=== PATIENT | female | born 2000 | race Caucasian/White ===

== ENCOUNTER 2023-01-28 12:02 | Inpatient (IN) | payer OTHER ==
[~2023-01-28] VITALS: Ht 157.5 cm; Wt 93.0 kg
[2023-01-28] VITALS (28 sets, daily range): BP systolic 100–136; BP diastolic 54–87
[2023-01-28] MEDS ORDERED: CALC500C16 PO (12:27)
[2023-01-28] MEDS ORDERED: PREN200C PO (12:27)
[2023-01-28] MEDS ORDERED: VITA100T59 PO (12:27)
[2023-01-28] MEDS ORDERED: LR 1,000 ML IV SCH (13:20)
[2023-01-28] MEDS ORDERED: METHYLERGONOVINE MALEATE 0.2MG/ML 1ML VIAL IM PRN (13:20)
[2023-01-28] MEDS ORDERED: CARBOPROST TROMETHAMINE 250 MCG/ML AMP IM PRN (13:20)
[2023-01-28] MEDS ORDERED: TRANEXAMIC ACID INJection 1,000 MG in NS 100 ML IV PRN (13:20)
[2023-01-28] MEDS ORDERED: OXYTOCIN DRIP 30 UNITS in IV 1 EA IV PRN ×4 (13:20)
[2023-01-28] MEDS ORDERED: HOME MED LIST COMPLETE! XX SCH (13:25)
[2023-01-28 14:08] LABS: HEMATOCRIT 29.4 % (36.0-47.0); HEMOGLOBIN 9.7 g/dl (12.0-15.5); MEAN CORPUSCULAR HEMOGLOBIN 29.3 pg (27.0-33.0); MEAN CORPUSCULAR VOLUME 88.8 fl (80.0-96.0); PLATELET COUNT, AUTOMATED 189 10^3/uL (150-450); RED BLOOD COUNT 3.31 10^6/uL (4.00-5.40); WHITE BLOOD COUNT 7.5 10^3/uL (4.0-10.0)
[2023-01-28] MEDS ORDERED: EPIDURAL/PCA KEYS XX PRN (19:10)
[2023-01-28] MEDS ORDERED: FENTANYL/ROPIVACAINE/NACL BAG 100 ML EPIDURAL SCH (19:10)
[2023-01-28] MEDS ORDERED: ONDANSETRON 4MG 2ML VIAL IV PRN (19:10)
[2023-01-28] MEDS ORDERED: LR 500 ML IV PRN (19:10)
[2023-01-28] MEDS ORDERED: diphenhydrAMINE 50MG/ML VIAL IV PRN (19:10)
[2023-01-28] MEDS ORDERED: NALOXONE INJ 0.4MG/1ML VIAL IV PRN (19:10)
[2023-01-28] MEDS ORDERED: ePHEDrine SULFATE 25 MG/5 ML(5MG/ML) SYRINGE IVP PRN (19:10)
[2023-01-28] MEDS: LR 1,000 ML IV SCH (20:30)
[2023-01-29] VITALS (11 sets, daily range): BP systolic 100–129; BP diastolic 56–79; O2SAT 98
[2023-01-29 01:30] LABS: ABG PARTIAL PRESSURE CO2 49.7 mmHg (35.0-45.0)
[2023-01-29 01:31] LABS: CORD GAS ABE V -1.8; CORD GAS HCO3 V 22.7 MMOL/L; CORD GAS O2 SAT V 78.9 %; CORD GAS PH V 7.395 UNITS; CORD GAS PO2 V 32.4 mmHg; CORD GAS SBC V 22.6 MMOL/L; CORD GAS TCO2 V 23.9 MMOL/L
[2023-01-29 01:33] LABS: ABG HCO3 23.9 MMOL/L (22.0-26.0); ABG O2 SATURATION 50.8 % (95.0-99.0); ABG STANDARD HCO3 20.9 MMOL/L. (22.0-26.0); ABG TOTAL CO2 25.4 MMOL/L (22.0-29.0)
[2023-01-29 01:35] LABS: ABG PARTIAL PRESSURE O2 22.7 mmHg (75.0-100.0)
[2023-01-29] MEDS ORDERED: DOCUSATE SODIUM 100MG CAPSULE PO PRN (01:35)
[2023-01-29] MEDS ORDERED: DIBUCAINE 1% OINTMENT 30GM TOP PRN (01:35)
[2023-01-29] MEDS ORDERED: METHYLERGONOVINE MALEATE 0.2MG/ML 1ML VIAL IM PRN (01:35)
[2023-01-29] MEDS: ACETAMINOPHEN 500 MG TAB PO SCH ×4 (01:35→18:37)
[2023-01-29] MEDS ORDERED: ONDANSETRON 4MG 2ML VIAL IV PRN (01:35)
[2023-01-29] MEDS: LR 1,000 ML IV SCH ×3 (01:35→03:46)
[2023-01-29] MEDS ORDERED: RHOGAM 300MCG (1500IU) INJ IM SCH (01:35)
[2023-01-29] MEDS ORDERED: METOCLOPRAMIDE INJ 10MG/2ML VIAL IV PRN (01:35)
[2023-01-29] MEDS ORDERED: OXYTOCIN DRIP 30 UNITS in IV 1 EA IV SCH (01:35)
[2023-01-29] MEDS ORDERED: IBUPROFEN 800 MG TAB PO SCH (03:00)
[2023-01-29] MEDS: PRENATAL VITAMINS CHEWABLE TABLET PO SCH (08:26)
[2023-01-29] MEDS: IBUPROFEN 800 MG TAB PO SCH ×2 (11:59→20:23)
[2023-01-30] MEDS: ACETAMINOPHEN 500 MG TAB PO SCH ×3 (01:12→13:35)
[2023-01-30] MEDS: IBUPROFEN 800 MG TAB PO SCH ×2 (05:33→11:47)
[2023-01-30 06:00] VITALS: BP 131/75; O2SAT 99
[2023-01-30 07:01] LABS: HEMATOCRIT 27.8 % (36.0-47.0); HEMOGLOBIN 8.8 g/dl (12.0-15.5); MEAN CORPUSCULAR HEMOGLOBIN 28.7 pg (27.0-33.0); MEAN CORPUSCULAR HGB CONC 31.7 g/dl (32.0-36.5); MEAN CORPUSCULAR VOLUME 90.6 fl (80.0-96.0); PLATELET COUNT, AUTOMATED 179 10^3/uL (150-450); RED BLOOD COUNT 3.07 10^6/uL (4.00-5.40); WHITE BLOOD COUNT 6.5 10^3/uL (4.0-10.0)
[2023-01-30] MEDS: PRENATAL VITAMINS CHEWABLE TABLET PO SCH (07:49)
[2023-01-31] MEDS ORDERED: MEASLES,MUMPS,RUBELLA VACCINE INJ (MMR-II) SC.IMMUN ONE (09:00)
== END 2023-01-30 15:10 | disposition home or self-care (01) | DRG 807 ==
LOC: M LDO 12:02 → M LDI 12:56 → M OBS 01-29 06:04
PROVIDERS: ADMIT Obstetrics & Gynecology; ATTEND Obstetrics & Gynecology
PROC: 10E0XZZ Delivery of Products of Conception, External Approach (ICD-10-PCS; principal; 2023-01-29)
DX: O80 Encounter for full-term uncomplicated delivery (principal); Z37.0 Single live birth; Z3A.39 39 weeks gestation of pregnancy

== ENCOUNTER → 2024-10-19 | Outpatient (REF) | payer OTHER ==
[~2024-10-19] MED LIST: ACET-897 PO; CALC500C16 PO; IRON27TA2 PO; PREN200C PO; VITA100T59 PO
== END ==
LOC: M PLALAB 10:56
PROVIDERS: ATTEND Nurse Practitioner Family
DX: Z36.85 Encounter for antenatal screening for Streptococcus B (principal); Z3A.37 37 weeks gestation of pregnancy